=== PATIENT | female | born 1995 | race Caucasian/White ===

== ENCOUNTER 2018-06-05 15:25 | Emergency (ER) | payer OTHER ==
[2018-06-05] MEDS ORDERED: HYDROmorphone 0.5 MG/0.5 ML SYRINGE IVPUSH STA (15:35)
[2018-06-05] MEDS ORDERED: Ondansetron 4 MG/2 ML SDV IVPUSH ONE (15:36)
[2018-06-05] MEDS ORDERED: Sodium Chloride 0.9% 10 ML Syringe FLUSH ONE (15:40)
[2018-06-05] MEDS ORDERED: Iopamidol 612 MG/ML 100 ML Bottle IVPUSH ONE (15:40)
[2018-06-05] MEDS ORDERED: Sodium Chloride 0.9% 1,000 ML IV SCH (15:45)
--- NOTE | 2018-06-05 15:57 | CR ---
Chest: Portable view of the chest was obtained. Comparison: No prior chest x-ray. Heart size and mediastinum are within normal limits for portable technique. Small azygos lobe is incidentally noted. Lungs are clear with no acute parenchymal change. No discrete bony abnormality is appreciated. Impression: 1. Nothing acute is appreciated on portable chest x-ray. Diagnostic code #1
--- NOTE | 2018-06-05 16:10 | CT ---
CT abdomen and pelvis Technique: Multiple axial sections were obtained from above the dome of the diaphragm inferiorly through the pubic symphysis. Intravenous contrast was utilized. No oral contrast has been given. Findings: Very minimal amount of air is noted within the upper right anterior abdominal wall. Small low-density finding is seen within the adjacent liver possibly due to minimal liver contusion. Liver is otherwise unremarkable. Spleen appears normal. Adrenal glands are unremarkable. Pancreas appears normal. Gallbladder shows no calcifications. Kidneys show symmetric contrast enhancement without abnormality. Aorta shows no aneurysmal dilatation. No retroperitoneal adenopathy is seen. Small amount of free fluid is seen within the pelvis most likely physiologic. No additional pelvic abnormality is seen. No inflammatory change is seen. Bone window settings were reviewed which shows no discrete osseous abnormality. Visualized lung bases are clear. Impression: 1. Very small amount of air within the right anterior abdominal wall with very minimal low density finding within the adjacent right lobe of the liver possibly due to small liver contusion. 2. No additional abnormality is seen on CT study of the abdomen and pelvis. Diagnostic code #3
--- NOTE | 2018-06-05 16:19 | EDM.PDOC ---
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 She states that she walked behind one of the horses, who then kicked her in her upper right abdomen. The patient is brought by EMS, complaining of upper abdominal and lower right rib pain, and pain with breathing. She remained hemodynamically stable en route. Her last oral solid food was at 07:30 this morning. The patient does not have a PCP. Treatments ENVIRONMENTAL ASSISTANT: Reports: IV/IO mid abdominal Pain Score (Numeric/FACES): 6 - Related Data Allergies Allergy/AdvReac Type Severity Reaction Status Date / Time No Known Allergies Allergy Verified 06/05/18 15:38 Home Meds: Home Meds Acetaminophen/HYDROcodone [[place] 325-5 MG] 1 - 2 tab PO Q6H PRN #14 tablet 06/05 [Rx] Control Pills 1 tab PO DAILY 06/05/18 [History] Past Medical History - Past Surgical History HEENT Surgical History: Reports: Oral Surgery ([place] teeth extraction) Musculoskeletal Surgical History: Reports: Arthroscopic Procedure (left knee ACL repair) Social & Family History - Family History Family Medical History: Noncontributory - Tobacco Use Smoking Status *Q: Never Smoker - Caffeine Use Caffeine Use: Reports: Tea - Alcohol Use Alcohol Use History: Yes Alcohol Use Frequency: Socially - Recreational Drug Use Recreational Drug Use: No - Living Situation & Occupation Living situation: Reports: Single, with Significant Other (Boyfriend) Occupation: Employed (fashion merchandiser) Review of Systems - Review of Systems Review Of Systems: ROS reveals no pertinent complaints other than HPI. ED EXAM, GENERAL - Physical Exam Exam: See Below Exam Limited By: No Limitations General Appearance: Alert, WD/WN, Mild Distress (obvious pain) Eye Exam: Bilateral Eye: EOMI, Normal Inspection Ears: Normal External Exam, Hearing Grossly Normal Nose: Normal Inspection, No Blood Throat/Mouth: Normal Inspection, Normal Lips, Normal Voice, No Airway Compromise Head: Atraumatic, Normocephalic Neck: Normal Inspection, Full Range of Motion Respiratory/Chest: No Respiratory Distress, Lungs Clear, Normal Breath Sounds, No Accessory Muscle Use. No: Crackles, Rhonchi, Wheezing Cardiovascular: Normal Peripheral Pulses, Regular Rate, Rhythm, No Edema, No Gallop, No JVD, No Murmur, No Rub Peripheral Pulses: 4+: Radial (L), Radial (R) GI/Abdominal: Normal Bowel Sounds, Soft, No Organomegaly, No Distention, No Abnormal Bruit, No Mass, Tender (Right upper quadrant only. Nontender elsewhere. ), Other (erythema to the upper right abdomen) (Female) Exam: Deferred Rectal (Female) Exam: Deferred Back Exam: Normal Inspection, Full Range of Motion, NT Extremities: Normal Inspection, Normal Range of Motion, No Pedal Edema, Normal Capillary Refill Neurological: Alert, Oriented, Normal Cognition, No Motor/Sensory Deficits Psychiatric: Normal Affect Skin Exam: Warm, Dry, Intact, Normal Color, No Rash Course - Vital Signs Last Recorded V/S: Last Vital Signs Temp 37.2 C 06/05/18 15:25 Pulse 62 06/05/18 16:53 Resp 16 06/05/18 16:53 BP 117/86 06/05/18 16:53 Pulse Ox 99 06/05/18 16:53 - Orders/Labs/Meds Orders: Active Orders 24 hr Category Date Time Status UA W/MICROSCOPIC [URIN] Stat Lab 06/05/18 16:19 Ordered Sodium Chloride 0.9% [Normal Saline] 1,000 ml Med 06/05/18 15:45 Active IV ASDIRECTED Medication Orders Sodium Chloride (Normal Saline) 1,000 mls @ 150 mls/hr IV ASDIRECTED LARY Last Admin: 06/05/18 15:55 Dose: 150 mls/hr Labs: Laboratory Tests 06/05/18 06/05/18 06/05/18 Range/Units 16:00 16:00 16:00 WBC 7.96 (3.98-10.04) K/mm3 RBC 4.91 (3.98-5.22) M/mm3 Hgb 14.2 (11.2-15.7) gm/L Hct 40.4 (34.1-44.9) % MCV 82.3 (79.4-94.8) fl MCH 28.9 (25.6-32.2) pg MCHC 35.1 (32.2-35.5) g/dl RDW Std Deviation 36.7 (36.4-46.3) fL Plt Count 270 (182-369) K/mm3 MPV 9.3 L (9.4-12.3) fl Neutrophils % (Manual) 62 H (40-60) % Band Neutrophils % 0 (0-10) % Lymphocytes % (Manual) 32 (20-40) % Atypical Lymphs % 0 % Monocytes % (Manual) 5 (2-10) % Eosinophils % (Manual) 1 (0.7-5.8) % Basophils % (Manual) 0 L (0.1-1.2) Platelet Estimate Adequate Plt Morphology Comment Normal RBC Morph Comment Normal PT 14.7 H (9.5-12.1) SECONDS INR 1.36 APTT 24 (24-31) SECONDS Sodium 138 (136-145) mEq/L Potassium 3.3 L (3.5-5.1) mEq/L Chloride 102 (98-107) mEq/L Carbon Dioxide 27 (21-32) mEq/L Anion Gap 12.3 (5-15) BUN 15 (7-18) mg/dL Creatinine 0.9 (0.55-1.02) mg/dL Est Cr Clr Drug Dosing 82.82 mL/min Estimated GFR (MDRD) > 60 (>60) mL/min BUN/Creatinine Ratio 16.7 (14-18) Glucose 86 (74-106) mg/dL Calcium 8.5 (8.5-10.1) mg/dL Total Bilirubin 0.7 (0.2-1.0) mg/dL AST 74 H (15-37) U/L ALT 56 (14-59) U/L Alkaline Phosphatase 46 (46-116) U/L Total Protein 6.6 (6.4-8.2) g/dl Albumin 3.6 (3.4-5.0) g/dl Globulin 3.0 gm/dL Albumin/Globulin Ratio 1.2 (1-2) Urine Color (Yellow) Urine Appearance (Clear) Urine pH (5.0-8.0) Ur Specific [place] (1.005-1.030) Urine Protein (Negative) Urine Glucose (UA) (Negative) Urine Ketones (Negative) Urine Occult Blood (Negative) Urine Nitrite (Negative) Urine Bilirubin (Negative) Urine Urobilinogen (0.2-1.0) Ur Leukocyte Esterase (Negative) Urine RBC (0-5) /hpf Urine WBC (0-5) /hpf Ur Epithelial Cells (0-5) /hpf Urine Bacteria (FEW) /hpf Urine Mucus (FEW) /hpf Urine HCG, Qual (NEGATIVE) 06/05/18 06/05/18 Range/Units 16:19 16:19 WBC (3.98-10.04) K/mm3 RBC (3.98-5.22) M/mm3 Hgb (11.2-15.7) gm/L Hct (34.1-44.9) % MCV (79.4-94.8) fl MCH (25.6-32.2) pg MCHC (32.2-35.5) g/dl RDW Std Deviation (36.4-46.3) fL Plt Count (182-369) K/mm3 MPV (9.4-12.3) fl Neutrophils % (Manual) (40-60) % Band Neutrophils % (0-10) % Lymphocytes % (Manual) (20-40) % Atypical Lymphs % % Monocytes % (Manual) (2-10) % Eosinophils % (Manual) (0.7-5.8) % Basophils % (Manual) (0.1-1.2) Platelet Estimate Plt Morphology Comment RBC Morph Comment PT (9.5-12.1) SECONDS INR APTT (24-31) SECONDS Sodium (136-145) mEq/L Potassium (3.5-5.1) mEq/L Chloride (98-107) mEq/L Carbon Dioxide (21-32) mEq/L Anion Gap (5-15) BUN (7-18) mg/dL Creatinine (0.55-1.02) mg/dL Est Cr Clr Drug Dosing mL/min Estimated GFR (MDRD) (>60) mL/min BUN/Creatinine Ratio (14-18) Glucose (74-106) mg/dL Calcium (8.5-10.1) mg/dL Total Bilirubin (0.2-1.0) mg/dL AST (15-37) U/L ALT (14-59) U/L Alkaline Phosphatase (46-116) U/L Total Protein (6.4-8.2) g/dl Albumin (3.4-5.0) g/dl Globulin gm/dL Albumin/Globulin Ratio (1-2) Urine Color Yellow (Yellow) Urine Appearance Clear (Clear) Urine pH 6.0 (5.0-8.0) Ur Specific [place] 1.025 (1.005-1.030) Urine Protein 1+ H (Negative) Urine Glucose (UA) Negative (Negative) Urine Ketones Negative (Negative) Urine Occult Blood Negative (Negative) Urine Nitrite Negative (Negative) Urine Bilirubin Negative (Negative) Urine Urobilinogen 0.2 (0.2-1.0) Ur Leukocyte Esterase Negative (Negative) Urine RBC Not seen (0-5) /hpf Urine WBC 0-5 (0-5) /hpf Ur Epithelial Cells 0-5 (0-5) /hpf Urine Bacteria Not seen (FEW) /hpf Urine Mucus Few (FEW) /hpf Urine HCG, Qual Negative (NEGATIVE) Meds: Medications Generic Name Dose Route Start Last Admin Trade Name Freq PRN Reason Stop Dose Admin Sodium Chloride 1,000 mls @ 150 mls/hr 06/05/18 15:45 06/05/18 15:55 Normal Saline IV 150 mls/hr ASDIRECTED LARY Administration Discontinued Medications Generic Name Dose Route Start Last Admin Trade Name Freq PRN Reason Stop Dose Admin Hydromorphone HCl 1 mg 06/05/18 15:35 06/05/18 15:55 Dilaudid IVPUSH 06/05/18 15:36 1 mg ONETIME STA Administration Iopamidol 100 ml 06/05/18 15:40 06/05/18 15:51 Isovue-300 (61%) IVPUSH 06/05/18 15:41 100 ml ONETIME ONE Administration Ondansetron HCl 4 mg 06/05/18 15:36 06/05/18 15:59 Zofran IVPUSH 06/05/18 15:37 4 mg ONETIME ONE Administration Sodium Chloride 10 ml 06/05/18 15:40 06/05/18 15:51 Saline Flush FLUSH 06/05/18 15:41 10 ml ONETIME ONE Administration - Re-Assessments/Exams Free Text/Narrative Re-Assessment/Exam: 06/05/18 15:30 Portable chest radiograph appears to be grossly normal. Cardiac silhouette is within normal limits. No pulmonary vascular congestion. No pleural effusions. No focal infiltrate. No pneumothorax. Formal read per the radiologist pending. 06/05/18 16:16 CT of the abdomen and pelvis with IV contrast is read by Dr. Moreno as: 1. Very small amount of air within the right anterior abdominal wall with very minimal low density finding within the adjacent right lobe of the liver possibly due to small liver contusion. 2. No additional abnormality is seen on CT study of the abdomen and pelvis. 06/05/18 16:[address] Grajeda at 16:31. While there may be a small amount of intra-abdominal wall air, there is no intra-abdominal air, therefore this is consistent with abdominal wall contusion. The patient can therefore be discharged home with a prescription for pain medication, then follow-up with Dr. Mars in a week. We are still waiting for the urinalysis and urine test. Presuming these are unremarkable, the patient may then be discharged home. 06/05/18 17:57 Test results discussed with the patient and her friends. Other than the abdominal wall and liver contusion, patient's workup was otherwise negative. I will discharge her home with a prescription for [place], and recommend that she take ibuprofen on a regular basis, with [place] for breakthrough pain. I will refer her to Dr. Mars for follow-up in a week. Departure - Departure Time of Disposition: 17:58 Disposition: Home, Self-Care 01 Condition: Good Clinical Impression: Liver contusion, Abdominal wall contusion - Discharge Information Prescriptions: Acetaminophen/HYDROcodone [[place] 325-5 MG] 1 - 2 tab PO Q6H PRN #14 tablet PRN Reason: Pain (Severe 7-10) Referrals: PCP,None [Primary Care Provider] - Ernesto Mars MD [Physician] - Forms: ED Department Discharge Additional Instructions: You were seen in the emergency room after being kicked in the upper abdomen by a horse. Workup in the ER included blood work, a urinalysis, a urine test, a chest x-ray, and a CT scan of your abdomen and pelvis. Your workup found you have a small contusion to your liver, and a contusion to your abdominal wall. No other injuries were found. You likely have more pain after you get home tonight. You may even feel some depression. This is common. Stay well hydrated, get plenty of rest tonight, then resume your usual activities tomorrow. Do not stay in bed or lie on the couch. Take [id number] ibuprofen, 2-3 tablets (400-600 mg) every 8 hours, with food, as needed for pain. Take 1 to 2 tablets of the opioid pain reliever [place] up to every 6 hours as needed for pain not relieved by ibuprofen. If you take [place], do not drive or operate heavy machinery for 10 hours afterwards. [place] may cause constipation, so consider taking a stool softener. Follow-up with the Trauma Surgeon Dr. Ernesto Mars on or about Tuesday, 2017. If any other problems, please do not hesitate to return to the ER. - My Orders Last 24 Hours: My Active Orders 06/05/18 15:45 Sodium Chloride 0.9% [Normal Saline] 1,000 ml IV ASDIRECTED 06/05/18 16:19 UA W/MICROSCOPIC [URIN] Stat - Assessment/Plan Last 24 Hours: My Active Orders 06/05/18 15:45 Sodium Chloride 0.9% [Normal Saline] 1,000 ml IV ASDIRECTED 06/05/18 16:19 UA W/MICROSCOPIC [URIN] Stat
== END 2018-06-05 18:22 | disposition home or self-care (01) ==
LOC: JD.ED 15:25
DX: S36.112A Contusion of liver, initial encounter (principal); S30.1XXA Contusion of abdominal wall, initial encounter; W55.12XA Struck by horse, initial encounter
CPT/HCPCS: 36415; 71045; 74177; 80053; 81001; 81025; 85007; 85027; 85610; 85730; 96361; 96374; 96375; 99285; J1170; J2405; J7040; J7050; Q9967

== ENCOUNTER 2019-01-31 18:21 | Emergency (ER) | payer OTHER ==
--- NOTE | 2019-01-31 18:52 | EDM.PDOC ---
ED HPI GENERAL MEDICAL PROBLEM <Glenda Valladares - Last Filed: 01/31/19 19:56> - General Source of Information: Reports: Patient, Family (friend) History Limitations: Reports: No Limitations - History of Present Illness Onset: Today Onset Date: 01/31/19 Onset Time: 18:05 Duration: Minutes: Location: Reports: Face (Laceration right forehead.), Upper Extremity, Left ( Contusion pain mid shaft left forearm), Upper Extremity, Right (Injury to the right thenar eminence and thumb) Quality: Reports: Ache (Pain is worse in her right hand and thumb area.) Head Pain Score (Numeric/FACES): 6 <Cody Good - Last Filed: 01/31/19 20:10> - General Chief Complaint: Trauma Stated Complaint: BUCKED OFF A HORSE Time Seen by Provider: 01/31/19 18:35 - History of Present Illness INITIAL COMMENTS - FREE TEXT/NARRATIVE: 23-year-old female presents to the ED for evaluation after being bucked off a horse. She states she was about 3 feet from a steel fence post and she landed head first on the poles with a resultant deep 3-4 cm laceration right upper forehead. He denies any loss of consciousness. She also hurt her right thumb in the thenar eminence of her right hand. Of note she is right-hand dominant. She also hurt the musculature in the mid left forearm. Walk okay she has no pain in her ribs or her back or her neck. There was no loss of consciousness. Tetanus toxoid is believed to be up-to-date about 7 years ago. Denies any possibility of . (Cody Good) - Related Data Allergies Allergy/AdvReac Type Severity Reaction Status Date / Time No Known Allergies Allergy Verified 06/05/18 15:38 Home Meds: Home Meds Control Pills 1 tab PO DAILY 06/05/18 [History] Past Medical History - Past Health History Medical/Surgical History: Denies Medical/Surgical History - Past Surgical History HEENT Surgical History: Reports: Oral Surgery ([place] teeth extraction) Musculoskeletal Surgical History: Reports: Arthroscopic Procedure (left knee ACL repair) <Cody Good - Last Filed: 01/31/19 20:10> Social & Family History - Family History Family Medical History: Noncontributory - Caffeine Use Caffeine Use: Reports: Tea - Living Situation & Occupation Living situation: Reports: Single, with Significant Other (Boyfriend) Occupation: Employed ([employer]) <Cody Good Trace - Last Filed: 01/31/19 20:10> Review of Systems - Review of Systems Review Of Systems: See Below Constitutional: Reports: No Symptoms Eyes: Reports: No Symptoms Ears: Reports: No Symptoms Nose: Reports: No Symptoms Mouth/Throat: Reports: No Symptoms Respiratory: Reports: No Symptoms Cardiovascular: Reports: No Symptoms GI/Abdominal: Reports: No Symptoms Genitourinary: Reports: No Symptoms Musculoskeletal: Reports: No Symptoms Skin: Reports: No Symptoms Neurological: Reports: No Symptoms Psychiatric: Reports: No Symptoms <Cody Good Trace - Last Filed: 01/31/19 20:10> ED EXAM, GENERAL - Physical Exam Exam: See Below Exam Limited By: No Limitations General Appearance: Alert, WD/WN, Anxious, Mild Distress, Other (Her entire face is covered with dried blood from a deep laceration to her right upper forehead.) Eye Exam: Bilateral Eye: Normal Inspection, Proptosis Ears: Normal TMs Nose: Normal Inspection, Normal Mucosa Throat/Mouth: Normal Inspection, Normal Lips, Normal Teeth, Normal Oropharynx, Other Head: Facial Tenderness (Patient has a deep 3-3.5 cm laceration right upper forehead it does go away down to the galea.), Other Neck: Normal Inspection, Supple, Non-Tender, Full Range of Motion, Other ( Pletal full range of motion with no pain.). No: Lymphadenopathy (L), Lymphadenopathy (R) Respiratory/Chest: No Respiratory Distress, Lungs Clear, Normal Breath Sounds, No Accessory Muscle Use Cardiovascular: Normal Peripheral Pulses, Regular Rate, Rhythm, No Edema, No Gallop, No Murmur GI/Abdominal: Normal Bowel Sounds, Soft, Non-Tender, No Organomegaly, No Abnormal Bruit, No Mass, Pelvis Stable Back Exam: Normal Inspection, Full Range of Motion, Other Extremities: Normal Range of Motion, No Pedal Edema, Other (Examination of her right hand shows swelling over the thenar eminence with ability to fully oppose the right thumb to the little finger but very painful. The wrist itself appears to be normal. She will require x-rays of her right hand and thumb. On the left forearm she has a nearly a circumferential hematoma involving both forward and extensor muscles mostly volar midforearm. However she has full pronation supination and good vp packaging strength indicating no fractures. Remedy show no evidence of injuries.) Neurological: Alert, Oriented, CN II-XII Intact, Normal Cognition, Normal Gait, No Motor/Sensory Deficits Psychiatric: Normal Affect, Normal Mood Skin Exam: Other (Deep laceration right upper forehead) <Cody Good - Last Filed: 01/31/19 20:10> ED TRAUMA PROCEDURES - Laceration/Wound Repair Forehead Appearance: Subcutaneous, Linear, Mildly Contaminated Distal NVT: Neuro & Vascular Intact Anesthetic Type: Local Local Anesthesia - Lidocaine (Xylocaine): 1% Plain Local Anesthetic Volume: 5cc Skin Prep: Chlorhexidine (Hibiciens), Providone-Iodine (Betadine) Exploration/Debridement/Repair: Wound Explored, No Foreign Material Found, Multiple Flaps Aligned Closed With: Sutures Suture Size: other (5.o) # of Sutures: 6 Suture Type: Prolene, Interrupted, Simple, Other Suture Size: 4-0 # of Sutures: 2 Repaired With: Vicryl Drain Placement: No Sterile Dressing Applied: None Tetanus Status Addressed: No Complications: No <Glenda Valladares - Last Filed: 01/31/19 19:56> <Cody Good - Last Filed: 01/31/19 20:10> - Laceration/Wound Repair Forehead Progress/Comments: patient tolerated procedure well. (Glenda Valladares) Course <Glenda Valladares - Last Filed: 01/31/19 19:56> <Cody Good - Last Filed: 01/31/19 20:10> - Vital Signs Last Recorded V/S: Last Vital Signs Temp 36.3 C 01/31/19 18:33 Pulse 87 01/31/19 18:33 Resp 18 01/31/19 18:33 BP 121/93 H 01/31/19 18:33 Pulse Ox 100 01/31/19 18:33 - Orders/Labs/Meds Orders: Active Orders 24 hr Category Date Time Status Hand Comp Min 3V Rt [CR] Stat Exams 01/31/19 18:45 Taken Meds: Medications Discontinued Medications Generic Name Dose Route Start Last Admin Trade Name Freq PRN Reason Stop Dose Admin Ibuprofen 600 mg 01/31/19 19:28 01/31/19 19:34 Motrin PO 01/31/19 19:29 600 mg ONETIME ONE Administration Lidocaine HCl 20 ml 01/31/19 19:21 01/31/19 20:06 Xylocaine 1% INJECT 01/31/19 19:22 Not Given ONETIME ONE Lidocaine HCl Confirm 01/31/19 19:23 01/31/19 19:30 Xylocaine 1% Administered 01/31/19 19:24 50 ml Dose Administration 50 ml .ROUTE .STK-MED ONE Ondansetron HCl 4 mg 01/31/19 19:28 01/31/19 19:34 Zofran Odt PO 01/31/19 19:29 4 mg ONETIME ONE Administration Oxycodone/Acetaminophen 1 tab 01/31/19 19:28 01/31/19 19:34 Percocet 325-5 Mg PO 01/31/19 19:29 1 tab ONETIME ONE Administration - Radiology Interpretation Free Text/Narrative:: 23-year-old female presents to the ED as a trauma patient after being bucked off a horse. She landed head first on the top of a steel fence post resulting in a deep laceration to her right upper forehead. She denies any loss of consciousness. The wound is very deep and does travel down to the galea. She has no evidence of neck injury or back spine injury. No pain in her ribs on from compression Laura treatment bilaterally. Benign abdominal exam lower extremities show no injuries. She has suffered contusion and injury to the thenar eminence and right thumb with limited range of motion. The right hand to be done. She also suffered blunt trauma to the left midforearm particularly the volar surface with a hematoma developing both volarly and on the lateral extensor surface. She has full pronation supination and good vp packaging strength and therefore no evidence of bony injury of the forearm. She will have CT head carried out due to the nature of the injury. She will require require laceration repair to the upper forehead (Cody Good) - Re-Assessments/Exams Free Text/Narrative Re-Assessment/Exam: 01/31/19 19;05: CT of the head is within normal limits. It does show a deep laceration right forehead that does travel down to the galea. Skull fractures identified no intracranial hemorrhage or mass effect identified. Similarly x- rays of the right hand show no evidence of injury to the thumb bones or the first metacarpal. Carpal bones also are normal. Therefore she has suffered soft tissue injury to the thenar eminence. Plan: she will have her laceration repaired by Glenda Valladares. 01/31/19 20:00: Laceration or surgically repaired under local anesthetic using lidocaine 1%. It looks very good. 7 sutures have been placed. Patient will have the sutures removed in 7 days time. She will daily cleanse the wound with soap and water and apply topical antibiotic to keep it clean . (Cody Good) Departure <Glenda Valladares - Last Filed: 01/31/19 19:56> - Departure Time of Disposition: 20:02 Condition: Fair - Discharge Information *PRESCRIPTION DRUG MONITORING PROGRAM REVIEWED*: Not Applicable *COPY OF PRESCRIPTION DRUG MONITORING REPORT IN PATIENT FABIÁN: Not Applicable <Cody Good - Last Filed: 01/31/19 20:10> - Departure Disposition: Home, Self-Care 01 Clinical Impression: Contusion of left forearm, initial encounter Closed head injury without concussion Qualifiers: Encounter type: initial encounter Qualified Code(s): S09.90XA - Unspecified injury of head, initial encounter Facial laceration Qualifiers: Encounter type: initial encounter Qualified Code(s): S01.81XA - Laceration without foreign body of other part of head, initial encounter Contusion of hand, right Qualifiers: Encounter type: initial encounter Qualified Code(s): S60.221A - Contusion of right hand, initial encounter - Discharge Information Instructions: Laceration Care, Adult, Contusion, [id number], Sutured Wound Care Referrals: PCP,None [Primary Care Provider] - Forms: ED Department Discharge Additional Instructions: Evaluation in the emergency room today in regards to those tended injury without concussion. This occurred when he were bucked off a horse and unfortunately struck a steel fence post on the way to the ground. This resulted in a 3.5 cm deep laceration to your right upper forehead which was cleansed and then sutured under local anesthetic 7 sutures. The head reveals no skull fractures and no intracranial bleeding or injuries. Secondly you suffered contusion to her right hand particularly the thenar eminence which is 3 muscles that help move you're thumb. X-ray of the right hand does not reveal any bony injuries injuries are soft tissue to the muscles of the hand. Ice pack to the area one half hour out of every 4 hours for the next 2 days. SPECT improvement over the next 5 days. Third problem was contusion to the left forearm. Again no bony injuries are identified. Suggest ice pack to the area for one half hour out of every 4 hours for the next 2 days. Motrin 600 mg every 6 hours needed for pain relief. Daily cleanse your laceration with soap and water. Showering is okay. Then apply topical anabolic such as bacitracin or Polysporin to the wound once or twice daily. Sutures may be removed in 7 days time. Return to medical care sooner if any signs of infection shop such as redness increased swelling or obvious pus. - My Orders Last 24 Hours: My Active Orders 01/31/19 18:45 Hand Comp Min 3V Rt [CR] Stat - Assessment/Plan Last 24 Hours: My Active Orders 01/31/19 18:45 Hand Comp Min 3V Rt [CR] Stat
--- NOTE | 2019-01-31 19:09 | CT ---
Head CT Technique: Multiple axial sections through the brain were obtained. Intravenous contrast was not utilized. Comparison: No previous intracranial imaging. Findings: Ventricles along with basal cisterns and sulci over the convexities are within normal limits for the patient's age. No abnormal parenchymal densities are seen. No evidence of intracranial hemorrhage. No midline shift or mass effect is seen. Bone window settings were reviewed which shows no discrete calvarial abnormality. Visualized sinuses are clear. Impression: 1. Nothing acute is appreciated on noncontrast head CT exam. Diagnostic code #1
[2019-01-31] MEDS ORDERED: Lidocaine 1% 10 ML MDV INJECT ONE (19:21)
[2019-01-31] MEDS ORDERED: Lidocaine 1% 50 ML MDV ONE (19:23)
[2019-01-31] MEDS ORDERED: Acetaminophen/oxyCODONE 325-5 MG Tab PO ONE (19:28)
[2019-01-31] MEDS ORDERED: Ibuprofen 600 MG Tab PO ONE (19:28)
[2019-01-31] MEDS ORDERED: Ondansetron 4 MG Tab.DIS PO ONE (19:28)
--- NOTE | 2019-02-01 07:14 | CR ---
Right hand: Four views of the right hand were obtained. Comparison: No prior hand exam. Joint spaces are maintained. No fracture, dislocation or other bony abnormality is seen. Impression: 1. No abnormality is identified on right hand exam. Diagnostic code #1
== END 2019-01-31 20:14 | disposition home or self-care (01) ==
LOC: JD.ED 18:21
DX: S01.81XA Laceration without foreign body of other part of head, initial encounter (principal); S09.90XA Unspecified injury of head, initial encounter; S60.221A Contusion of right hand, initial encounter; V80.010A Animal-rider injured by fall from or being thrown from horse in noncollision accident, initial encounter
CPT/HCPCS: 12013; 70450; 73130; 99284; A9270; J2001

== ENCOUNTER 2023-09-15 20:36 | Emergency (ER) | payer BC ==
[2023-09-15] MEDS ORDERED: Sodium Chloride 0.9% 10 ML Syringe FLUSH PRN (20:56)
[2023-09-15] MEDS ORDERED: Ondansetron 4 MG/2 ML SDV IVPUSH ONE (20:56)
[2023-09-15] MEDS ORDERED: Sodium Chloride 0.9% 1,000 ML IV ONE (20:56)
[2023-09-15] MEDS ORDERED: Ondansetron 8 MG in Sodium Chloride 0.9% 50 ML IV ONE (21:28)
[2023-09-15 21:34] LABS: BASOPHILS PERCENT AUTO 0.7 % (0.0-1.0); EOSINOPHILS ABSOLUTE AUTO 0.4 K/mm3 (0.0-0.4); EOSINOPHILS PERCENT AUTO 5.7 % (0.0-6.0); HEMATOCRIT 41.4 % (37.0-47.0); IMMATURE GRAN ABSOLUTE AUTO 0.05 K/mm3 (0.00-0.05); IMMATURE GRAN PERCENT AUTO 0.8 % (0.0-0.4); LYMPHOCYTES ABSOLUTE AUTO 1.7 K/mm3 (1.0-4.8); LYMPHOCYTES PERCENT AUTO 26.8 % (24.0-44.0); MEAN CORPUSCULAR HEMOGLOBIN 29.5 pg (28.0-32.0); MEAN CORPUSCULAR HGB CONC 36.2 g/dl (32.0-36.0); MEAN CORPUSCULAR VOLUME 81.5 fl (83.0-99.0); MONOCYTES ABSOLUTE AUTO 0.7 K/mm3 (0.0-0.8); MONOCYTES PERCENT AUTO 11.4 % (0.0-8.0); NEUTROPHILS ABSOLUTE AUTO 3.4 K/mm3 (1.8-7.7); NEUTROPHILS PERCENT AUTO 54.6 % (41.0-71.0); PLATELET COUNT,PLT 277 K/mm3 (150-400); RED BLOOD CELL COUNT 5.08 M/mm3 (4.10-5.30); WHITE BLOOD CELL COUNT,WBC 6.15 K/mm3 (3.9-11.3)
[2023-09-15 21:57] LABS: ALANINE AMINOTRANSFERASE,ALT 17 U/L (14-59); ALBUMIN 3.4 g/dl (3.4-5.0); ALKALINE PHOSPHATASE 61 U/L (46-116); ANION GAP 12.3 (5-15); ASPARTATE AMNIOTRANSFERASE,AST 17 U/L (15-37); BILIRUBIN TOTAL 0.4 mg/dL (0.2-1.0); BLOOD UREA NITROGEN,BUN 12 mg/dL (7-18); C-REACTIVE PROTEIN <0.2 mg/dL (<1.0); CALCIUM 8.5 mg/dL (8.5-10.1); CARBON DIOXIDE,CO2 24 mEq/L (21-32); CHLORIDE,CL 103 mEq/L (98-107); CREATININE 0.8 mg/dL (0.55-1.02); ESTIMATED GFR 102 mL/min (>60); GLUCOSE RANDOM 124 mg/dL (70-99); LIPASE 36 U/L (16-77); MAGNESIUM 1.9 mg/dL (1.8-2.4); POTASSIUM,K 3.3 mEq/L (3.5-5.1); PROTEIN TOTAL,TP 6.8 g/dl (6.4-8.2); SODIUM,NA 136 mEq/L (136-145)
[2023-09-15] MEDS ORDERED: Prochlorperazine 10 MG in Sodium Chloride 0.9% 50 ML IV ONE (22:14)
[2023-09-15 22:29] LABS: APPEARANCE,URINE CLEAR (Clear); BILIRUBIN,URINE NEGATIVE (Negative); COLOR,URINE YELLOW (Yellow); GLUCOSE,URINE NEGATIVE (Negative); KETONES,URINE NEGATIVE (Negative); LEUKOCYTE ESTERASE,URINE NEGATIVE (Negative); NITRITE,URINE NEGATIVE (Negative); OCCULT BLOOD,URINE NEGATIVE (Negative); PH,URINE 5.5 (5.0-8.0); PROTEIN,URINE NEGATIVE (Negative); UROBILINOGEN,URINE 0.2 (0.2-1.0)
[2023-09-15 22:51] LABS: BACTERIA,URINE MODERATE /hpf (FEW); MUCUS,URINE MODERATE /hpf (FEW); RBC,URINE 0-5 /hpf (0-5); WBC,URINE 0-5 /hpf (0-5)
== END 2023-09-15 23:45 | disposition home or self-care (01) ==
LOC: JD.ED 20:36
DX: O21.0 Mild hyperemesis gravidarum (principal); O99.331 Smoking (tobacco) complicating pregnancy, first trimester; F17.210 Nicotine dependence, cigarettes, uncomplicated; Z34.91 Encounter for supervision of normal pregnancy, unspecified, first trimester; Z3A.01 Less than 8 weeks gestation of pregnancy; Z79.899 Other long term (current) drug therapy
CPT/HCPCS: 36415; 80053; 81001; 81025; 83690; 83735; 84702; 85025; 86140; 96361; 96365; 96375; 99284; J0780; J2405; J3490; J7030

== ENCOUNTER 2024-05-22 18:39 | Inpatient (IN) | payer BC ==
[~2024-05-22 18:39] MED LIST: Bupivacaine 0.25% 10 ML SDV ONE
[2024-05-22] MEDS ORDERED: Sodium Chloride 0.9% 10 ML Syringe FLUSH PRN (19:19)
[2024-05-22] MEDS ORDERED: Ondansetron 4 MG/2 ML SDV IVPUSH PRN (19:19)
[2024-05-22] MEDS ORDERED: Misoprostol 25 MCG (1/4 of 100 MCG) Tab VAG PRN (19:19)
[2024-05-22] MEDS ORDERED: Lidocaine 1% 50 ML MDV INJECT PRN (19:19)
[2024-05-22] MEDS ORDERED: Nalbuphine 10 MG/ML Syringe IVPUSH PRN (19:19)
[2024-05-22] MEDS ORDERED: Oxytocin/Lactated Ringers 30 UNIT/500 ML BAG IV SCH (19:30)
[2024-05-22] MEDS: Misoprostol 25 MCG (1/4 of 100 MCG) Tab VAG ONE (19:56)
[2024-05-22 20:03] LABS: BASOPHILS ABSOLUTE AUTO 0.1 K/mm3 (0.0-0.2); BASOPHILS PERCENT AUTO 0.4 % (0.0-1.0); EOSINOPHILS ABSOLUTE AUTO 0.1 K/mm3 (0.0-0.4); HEMATOCRIT 35.4 % (37.0-47.0); HEMOGLOBIN 12.2 gm/dl (12.0-16.0); IMMATURE GRAN ABSOLUTE AUTO 0.13 K/mm3 (0.00-0.05); LYMPHOCYTES ABSOLUTE AUTO 2.8 K/mm3 (1.0-4.8); LYMPHOCYTES PERCENT AUTO 22.6 % (24.0-44.0); MEAN CORPUSCULAR HEMOGLOBIN 28.6 pg (28.0-32.0); MEAN CORPUSCULAR HGB CONC 34.5 g/dl (32.0-36.0); MEAN CORPUSCULAR VOLUME 82.9 fl (83.0-99.0); MEAN PLATELET VOLUME 11.2 fl (9.4-12.3); MONOCYTES PERCENT AUTO 8.2 % (0.0-8.0); NEUTROPHILS ABSOLUTE AUTO 8.4 K/mm3 (1.8-7.7); NEUTROPHILS PERCENT AUTO 66.8 % (41.0-71.0); PLATELET COUNT,PLT 242 K/mm3 (150-400); RED BLOOD CELL COUNT 4.27 M/mm3 (4.10-5.30); WHITE BLOOD CELL COUNT,WBC 12.51 K/mm3 (3.9-11.3)
[2024-05-23] MEDS: Oxytocin/Lactated Ringers 30 UNIT/500 ML BAG IV SCH (05:16)
[2024-05-23] MEDS: Lactated Ringers 1,000 ML IV SCH (05:19)
[2024-05-23] MEDS ORDERED: diphenhydrAMINE 50 MG/ML SDV IVPUSH PRN (07:36)
[2024-05-23] MEDS ORDERED: ePHEDrine 50 MG/ML SDV IVPUSH PRN (07:36)
[2024-05-23] MEDS: fentaNYL 100 MCG/2 ML SDV EPIDUR PRN (11:07)
[2024-05-23] MEDS: Bupivacaine/fentaNYL/NS 100 ML Bag EPIDUR PRN (11:07)
[2024-05-23] MEDS: Ibuprofen 600 MG Tab PO SCH (19:35)
[2024-05-23] MEDS: Acetaminophen 325 MG Tab PO PRN (19:36)
[2024-05-23] MEDS: Benzocaine/Menthol 20%-0.5% Spray 78 GM Cannister TOP PRN (19:37)
[2024-05-23] MEDS: Witch Hazel Medicated Pads 40/Jar TOP PRN (19:37)
[2024-05-24] MEDS: Sodium Chloride 0.9% 10 ML Syringe FLUSH SCH (08:01)
[2024-05-24] MEDS: Docusate Sodium 100 MG Cap PO PRN (09:00)
[2024-05-25 04:46] VITALS: BP 121/69; PULSE 65
[2024-05-25] MEDS: Measles, Mumps & Rubella Vaccine 0.5 ML SDV SUBCUT ONE (12:59)
== END 2024-05-25 13:25 | disposition home or self-care (01) | DRG 560 ==
LOC: JD.OB 18:39 → OBSVTOIN 05-23 18:39 → JD.OB 05-23 18:40
PROVIDERS: ADMIT Obstetrics & Gynecology; ATTEND Obstetrics & Gynecology
PROC: 10E0XZZ Delivery of Products of Conception, External Approach (ICD-10-PCS; principal; 2024-05-23)
PROC: 10907ZC Drainage of Amniotic Fluid, Therapeutic from Products of Conception, Via Natural or Artificial Opening (ICD-10-PCS; 2024-05-23)
PROC: 3E033VJ Introduction of Other Hormone into Peripheral Vein, Percutaneous Approach (ICD-10-PCS; 2024-05-23)
PROC: 3E0P7VZ Introduction of Hormone into Female Reproductive, Via Natural or Artificial Opening (ICD-10-PCS; 2024-05-23)
PROC: 0UQMXZZ Repair Vulva, External Approach (ICD-10-PCS; 2024-05-23)
PROC: 3E0R3BZ Introduction of Anesthetic Agent into Spinal Canal, Percutaneous Approach (ICD-10-PCS; 2024-05-23)
PROC: 00HU33Z Insertion of Infusion Device into Spinal Canal, Percutaneous Approach (ICD-10-PCS; 2024-05-23)
DX: O70.0 First degree perineal laceration during delivery (principal); Z37.0 Single live birth; Z3A.39 39 weeks gestation of pregnancy; Z98.890 Other specified postprocedural states; Z28.39 Other underimmunization status
CPT/HCPCS: 36415; 51702; 59025; 59409; 85025; 86592; 86850; 86900; 86901; 90471; 90707; A9270-GY; J0665; J3010; J3490; J7120; J7999